=== PATIENT | male | born 1955 | race Caucasian/White ===

== ENCOUNTER 2016-10-10 13:02 | Inpatient (IN) | payer OTHER ==
[2016-10-10] MEDS ORDERED: HYDROmorphone* 1 MG/ML 1 ML SYR IV ONE (14:17)
[2016-10-10] MEDS ORDERED: Ondansetron INJ* 2 MG/ML VIAL IV ONE (14:17)
[2016-10-10] MEDS ORDERED: NS 0.9% 1000 ML* 1,000 ML IV ONE (14:17)
[2016-10-10 14:55] LABS: Hematocrit 35 % (42-52); Hemoglobin 11.9 g/dl (14.0-18.0); Mean Corpuscular HGB Conc 34 g/dl (31-36); Mean Corpuscular Hemoglobin 31 pg (27-31); Mean Corpuscular Volume 91 fL (80-94); Mean Platelet Volume 7 um3 (7.4-10.4); Red Blood Count 3.89 10^6/ul (4.0-5.4); Red Cell Distribution Width 14 % (10.5-15); White Blood Count 17.8 10^3/ul (3.5-10.8)
[2016-10-10 15:11] LABS: Albumin 3.6 g/dL (3.2-5.2); C Reactive Protein 105.57 mg/L (< 5.00); Calcium 9.2 mg/dL (8.6-10.3); EGFR African American 264.1 (>60); EGFR Non-African American 205.4 (>60); Globulin 3.4 g/dL (2-4); Total Bilirubin 0.5 mg/dL (0.2-1.0)
[2016-10-10 15:20] LABS: Potassium 4.3 mmol/L (3.5-5.0)
[2016-10-10] MEDS ORDERED: Iohexol 300* (CONTRAST) 10 ML SDV IV ONE (15:38)
--- NOTE | 2016-10-10 16:58 | RAD ---
CLINICAL HISTORY: Painful left testicle and rectum in a patient with rectal cancer. COMPARISON: Most recent comparison CT of the abdomen and pelvis is dated June 16, 2016 TECHNIQUE: Contrast enhanced CT examination of the abdomen and pelvis from the lung bases through the initial tuberosities. The patient received 76 mL Omnipaque 300 intravenously prior to imaging.The patient received oral contrast as well prior to imaging. FINDINGS: Unless otherwise specified comparisons reference below are made to the June 16, 2016 CT. VISUALIZED LUNG BASES: Again seen are multiple metastases at the lung bases. In the dependent portion of the left upper lobe there is a 1.5 cm nodule, previously 1.3 cm. In the medial aspect of the right lower lobe there is a 1.6 cm nodule, previously 1.3 cm in the lateral aspect of the right lower lobe (image 4) there is a pleural-based nodule measuring 1.8 cm, previously 1.6 cm. ABDOMEN AND PELVIS: Multiple low-density lesions are seen throughout the liver. In the left lobe of the liver there is a subcapsular lesion measuring 2.9 cm in greatest axial dimension and corresponds to a 1.4 cm lesion seen on the previous CT examination in the right lobe of the liver there are 2 lesions adjacent to each other measuring 1.5 and 1.3 cm, previously 5 and 6 mm respectively. There is a new 1.8 cm lesion seen in the right lobe of the liver adjacent to the gallbladder. The spleen, pancreas and adrenal glands are grossly normal in appearance. The gallbladder is normal. The kidneys are normal in appearance without focal mass, calcification or signs of hydronephrosis. The oral contrast has progressed as far as the distal small bowel which limits evaluation of the colon. The small and large bowel are not distended. The patient's normal appendix is identified in the right lower quadrant with air scattered in the lumen (image 40 on the coronal images). Similar to the previous CT examination there is eccentric mural thickening of the rectum.. There is no gross retroperitoneal or mesenteric lymphadenopathy. In the left hemiscrotum there is a 1.8 cm peripherally enhancing fluid density lesion which could represent an abscess. Additional heterogeneous and heterogeneously enhancing material is seen in the left hemiscrotum extending towards the inguinal canal. The abdominal aorta and iliac arteries are normal in course and diameter. Multilevel degenerative changes of the lower thoracic and lumbar spine include loss of intervertebral disc height, marginal osteophyte formation and multilevel vacuum disc phenomenon. At the midline left of midline presacral space there is a soft tissue mass measuring 3.8 x 9.9 cm in the axial plane causing bony destruction of the adjacent sacrum. This was not seen on the previous CT examination. IMPRESSION: 1. There has been interval progression of metastatic burden to the lung bases and liver with enlargement of previously identified lesions as well as new lesions in the liver. 2. Since the previous CT examination there is a new soft tissue mass at the left of midline presacral area measuring 3.8 x 9.9 cm causing destruction of the S3, S4 and S5 level sacrum. 3. CT findings are most consistent with left scrotal abscess. Further characterization can be made with ultrasound if clinically warranted. 4. Additional chronic and degenerative changes as described in body the report unlikely to be directly related to the patient's current acute presentation.
[2016-10-10] MEDS ORDERED: Piperac/Tazob 3.375 gm in NS* 3.375 GM/100 ML BAG IVPB ONE ×2 (17:26→19:00)
[2016-10-10] MEDS ORDERED: PROCHLORPERAZINE INJ 5 MG/ML 2 ML VIAL IV PRN (18:11)
[2016-10-10] MEDS ORDERED: HYDROmorphone* 1 MG/ML 1 ML SYR IV SLOW PU PRN (18:11)
[2016-10-10] MEDS ORDERED: Acetaminophen TAB* 325 MG PO PRN (18:11)
[2016-10-10] MEDS ORDERED: Ondansetron INJ* 2 MG/ML VIAL IV PRN (18:11)
[2016-10-10] MEDS ORDERED: Senna TAB PO PRN (18:13)
[2016-10-10] MEDS ORDERED: LORazepam TAB(*) 0.5 MG PO PRN (18:13)
[2016-10-10] MEDS ORDERED: HYDROmorphone* 1 MG/ML 1 ML SYR IV SLOW PU ONE (18:42)
[2016-10-10] MEDS ORDERED: fentaNYL PATCHs 100 MCG/HR TRANSDERM SCH (19:00)
[2016-10-10] MEDS ORDERED: fentaNYL PATCH 25 MCG/HR TRANSDERM SCH (19:00)
[2016-10-10] MEDS: Methadone TAB* 10 MG PO SCH (20:34)
[2016-10-10] MEDS: Heparin VIAL(*) 5000 UNITS/ML VIAL (FIVE THOUSAND) SUBCUT SCH (20:50)
[2016-10-10] MEDS: NS 0.9% 1000 ML* 1,000 ML IV SCH (20:50)
--- NOTE | 2016-10-10 21:47 | HP ---
HISTORY AND PHYSICAL: DATE OF ADMISSION: 10/10/16 PRIMARY CARE PROVIDER: Matt Gaytan MD ATTENDING PHYSICIAN WHILE IN THE HOSPITAL: Asaf Luu MD *(report dictated by Judd Iniguez NP). CHIEF COMPLAINT: Scrotal pain. HISTORY OF PRESENT ILLNESS: Mr. Whitehead is a 61-year-old male patient who carries a history of stage IV rectal cancer who comes in today stating over the last couple of 2 to 3 days, he has had worsening left scrotal swelling and pain. He decided to the come in to the ER today. He denied having any fevers or chills. He was noted to have on CT imaging a scrotal abscess. He says that he thought initially it was his hernia as he does have an inguinal hernia, but the swelling and pain was just getting much worse and was inconsistent with where his pain typically was for his inguinal hernia. He said the hernia was normally painful on the right and today, the pain was much more pronounced on the left. He denied any fevers or chills. Denies having any nausea or vomiting. He says he has been having bowel movements regularly and he came in and was ultimately found to have a white count of 20,000 and also was found to have a fluid collection in that left scrotum, so the hospitalist service was asked to evaluate for admission. PAST MEDICAL HISTORY: Significant for stage IV rectal cancer. PAST SURGICAL HISTORY: Denied. HOME MEDICATIONS: According to the list that he provided include: 1. Fentanyl 125 mcg every 72 hours. 2. Senna 2 tablets p.o. t.i.d. as needed. 3. Oxycodone 90 mg 8 times a day as needed. 4. Methadone 40 mg p.o. every 8 hours. 5. Ativan 0.5 mg every 6 hours as needed. 6. Ventolin 1 puff inhaled every 6 hours. ALLERGIES TO MEDICATIONS: Include OXALIPLATIN. SOCIAL HISTORY: He is a current smoker. He has been smoking cigarettes for the last 3 years and prior to that, he did smoke cigars on a daily basis. He does drink 1 to 2 glasses of wine daily. Surrogate decision maker is his . FAMILY HISTORY: Reviewed and noncontributory. REVIEW OF SYSTEMS: There is no documented fever. He denied any significant weight change. He denied having any double vision. There is no ear discharge. He denies having any rhinorrhea. No sore throat. No thyroid enlargement. Denies having any chest pain. No orthopnea. There is no nocturnal dyspnea. He denies having abdominal pain with the exception of scrotal pain. He denies any nausea or vomiting. No dysuria. No frequency. No loss of consciousness, no pruritus and no skin ulceration. PHYSICAL EXAMINATION GENERAL: At this time, Mr. Whitehead is a 61-year-old male patient who is chronically ill appearing. He does appear to be cachectic. He is sitting in the ER stretcher, does not appear to be in any acute distress. VITAL SIGNS: Blood pressure 106/50, pulse 84, respirations 18, O2 sat of 100%, temperature 98.3. HEENT: Head is atraumatic and normocephalic. Eyes: EOMs are intact. Sclerae are anicteric, not pale. Throat: Oral mucosa appears to be moist. No oropharyngeal erythema. NECK: Supple. LUNGS: Clear to auscultation. No wheezes, rales, or rhonchi. HEART: Sounds S1, S2. Regular rate and rhythm. No murmurs, rubs, or gallops. ABDOMEN: Soft, flat, and nontender. Bowel sounds present. EXTREMITIES: Pulses were 2+ throughout. He is able to move all 4 extremities with 5/5 strength. NEUROLOGIC: He is awake, alert, oriented x3. No gross focal deficits. SKIN: Intact. SCROTAL: He did have swelling and pain on palpation to the left scrotum. There is otherwise no erythema noted. LABORATORY DATA/DIAGNOSTIC STUDIES: His labs today revealed WBC of 17.8, RBC of 3.89, hemoglobin 11.9, hematocrit 35, platelet count of 335. His sodium was 131, potassium 4.3, chloride of 95, bicarb 25, BUN 8, creatinine 0.42, glucose 99. Lactic 3.5. Calcium 9.2. Total bili 0.5, AST 10, ALT 8, alk phos 100, albumin 3.6. His CT abdomen and pelvis, impression: There has been interval progression of metastatic burden to the lung bases and liver with enlargement of the previous identified lesions as well as new lesions in the liver. Since the previous CT examination, there is new soft tissue mass of the left midline parasacral area measuring 3.8 x 9.8 cm causing destruction of the S3, 4, and 5 level of the sacrum. CT findings most consistent with left scrotal abscess. Further characterization can be made with ultrasound if clinically warranted. Additional chronic and degenerative changes described in the body of the report unlikely to be directly related to the patient's presentation. Old medical records reviewed. ASSESSMENT AND PLAN: Mr. Whitehead is a 61-year-old male patient with a history of stage IV rectal cancer with mets to the spine, liver, and lungs. On evaluation , it was found that he had proximal scrotal abscess. The hospitalist service was asked to evaluate. He will be admitted under inpatient status for: 1. Scrotal abscess. At this point, I did touch base with Dr. Gaytan, who will be evaluating the patient in the morning. We will go ahead and put him on Zosyn IV every 8 hours. The patient will need to be seen by Urology. The patient would not want any invasive procedures done. He seems to be wanting more of a palliative approach and again I will have Dr. Gaytan evaluate the patient tomorrow to see if we can set up possible aspiration or should we just treat this with IV antibiotics only. We will get blood cultures. We will repeat his lactic and we will go ahead and we will hydrate him. 2. Stage IV rectal cancer. Defer to Dr. Gaytan. 3. Fluids, electrolytes, and nutrition, regular diet. 4. Pain. Again, we will go ahead and continue his pain regimen and Dilaudid a milligram every 3 hours. 5. DVT prophylaxis, high risk, placed on heparin subcu. 6. Code status. I do not see they have the [facility] on file. We will need to discuss this with him. TIME SPENT: Time spent on the admission 60 minutes, greater than half the time spent [id number] with the patient obtaining my history and physical, assessment and plan over the plan of care with the patient and implementing plan of care. I did discuss the plan of care with my attending, Dr. Luu. He is in agreement. JUDD INIGUEZ NP CC: Dr. Gaytan * [id number]/[facility] #: [id number] [facility]ATRIC CENTERLilibeth
[2016-10-10] MEDS ORDERED: HYDROmorphone PCA* 20 MG/20 ML PCA.SYRING PCA SCH (22:00)
[2016-10-11] MEDS: Piperac/Tazob 3.375 gm in NS* 3.375 GM/100 ML BAG IVPB SCH ×2 (01:11→08:05)
[2016-10-11 03:35] LABS: Hematocrit 34 % (42-52); Hemoglobin 11.2 g/dl (14.0-18.0); Mean Corpuscular HGB Conc 33 g/dl (31-36); Mean Corpuscular Hemoglobin 30 pg (27-31); Mean Corpuscular Volume 92 fL (80-94); Mean Platelet Volume 6 um3 (7.4-10.4); Red Blood Count 3.68 10^6/ul (4.0-5.4); Red Cell Distribution Width 14 % (10.5-15); White Blood Count 14.2 10^3/ul (3.5-10.8)
[2016-10-11 03:52] LABS: BUN/Creatinine Ratio 20.9 (8-20); Calcium 8.6 mg/dL (8.6-10.3); EGFR Non-African American 199.9 (>60); Potassium 4.3 mmol/L (3.5-5.0)
[2016-10-11] MEDS: Heparin VIAL(*) 5000 UNITS/ML VIAL (FIVE THOUSAND) SUBCUT SCH (06:23)
[2016-10-11] MEDS: Methadone TAB* 10 MG PO SCH (07:08)
[2016-10-11] MEDS: NS 0.9% 1000 ML* 1,000 ML IV SCH (08:05)
--- NOTE | 2016-10-11 11:47 | RAD ---
Indication: 61-year-old male with metastatic colon cancer and clinical presentation of LEFT testicular pain with suggestion of abscess on October 10, 2016 CT. Comparison: October 10, 2016 CT. Technique: Scrotal ultrasound. Report: 4.0 x 2.1 x 2.7 cm normal echotexture RIGHT testicle with normal range vascularity is remarkable for a low suspicion subcapsular 4 mm cyst and a few microcalcifications. Unremarkable 1.0 x 1.7 cm RIGHT epididymis head. Negative for RIGHT hydrocele or varicocele. 5.0 x 3.1 x 3.2 cm LEFT testicle is markedly hyperemic. Central to inferior heterogeneously hypoechoic but not anechoic 1.3 x 2.3 x 1.5 cm region devoid of intrinsic vascularity is heterogeneously hypoechoic. No associated fluid fluid level or echogenic foci with dirty shadowing to indicate intratesticular gas. 1.8 x 2.2 cm LEFT epididymis head with 1.0 x 0.5 x 0.7 cm grossly simple appearing epididymal head cyst or spermatocele is hyperemic. Negative for LEFT hydrocele or varicocele. Severe LEFT scrotal wall edema. No scrotal wall abscess evident. IMPRESSION: The constellation of findings is most consistent with severe LEFT epididymoorchitis. Avascular heterogeneously hypoechoic 1.3 x 2.3 x 1.5 cm lesion in the inferior aspect of the LEFT testicle may represent phlegmon or potentially a neoplastic lesion. No loculated fluid containing abscess collection evident. Reassessment after a course of antibiotics suggested. Results discussed with Dr. Gaytan following the examination.
[2016-10-11 12:36] VITALS: BP 127/75
--- NOTE | 2016-10-12 07:52 | ED ---
Liza Darnell Erika, scribed for Marco Antonio Ward MD on 10/10/16 at 1411 . GI/ HPI - HPI Summary HPI Summary: Patient is a 61-year-old male presenting to the ED with a CC of constant rectal swelling and pain for the past 3-4 days. Pain is aggravated by movement. Patient reports a Hx rectal cancer diagnosed 2 years ago, for which he is followed by Dr. Gaytan. He denies any recent procedures. Patient states he called Dr. Gaytan, who recommended he come to the ED. Hx hernia for years. Patient reports his last appointment with Dr. Gaytan was in July 2016, and patient is on hospice. - History of Current Complaint Chief Complaint: EDGeneral Time Seen by Provider: 10/10/16 13:42 Stated Complaint: SWOLLEN TESTICLE Hx Obtained From: Patient, Family/Nightman - Onset/Duration: Started Days Ago, Atraumatic, Still Present Timing: Constant Severity: Moderate Pain Intensity: 6 Location of Pain: Rectal Associated Signs and Symptoms: Positive: Rectal Pain - and swelling Aggravating Factor(s): Movement Alleviating Factor(s): Nothing - Allergy/Home Medications Allergies/Adverse Reactions: Allergies Allergy/AdvReac Type Severity Reaction Status Date / Time No Known Allergies Allergy Verified 10/10/16 13:31 PMH/Surg Hx/FS Hx/Imm Hx Endocrine/Hematology History: Denies: Hx Diabetes, Hx Systemic Lupus Erythematosus Cardiovascular History: Denies: Hx Congestive Heart Failure, Hx Hypertension, Hx Pacemaker/ICD Respiratory History: Denies: Hx Asthma GI History: Reports: Other GI Disorders - colon cancer History: Denies: Hx Dialysis, Hx Renal Disease Musculoskeletal History: Denies: Hx Rheumatoid Arthritis Sensory History: Reports: Hx Contacts or Glasses - GLASSES Denies: Hx Hearing Aid Opthamlomology History: Reports: Hx Contacts or Glasses - GLASSES Neurological History: Reports: Other Neuro Impairments/Disorders - PAIN CLINIC INJECTION Psychiatric History: Denies: Hx Panic Disorder - Cancer History Cancer Type, Location and Year: RECTAL Hx Chemotherapy: Yes - on oral meds daily per patient Infectious Disease History: No Infectious Disease History: Denies: Traveled Outside the [place] in Last 30 Days - Family History Family History: Denies FHx anesthesia reaction - Social History Alcohol Use: Weekly Alcohol Amount: wine with dinner Substance Use Type: Reports: None Smoking Status (MU): Light Every Day Tobacco Smoker Type: Cigars Amount Used/How Often: 1-2 CIGS/DAY OCC CIGAR Have You Smoked in the Last Year: Yes Review of Systems Negative: Fever Genitourinary: Other - rectal pain and swelling All Other Systems Reviewed And Are Negative: Yes Physical Exam Triage Information Reviewed: Yes Vital Signs On Initial Exam: Initial Vitals Temp Pulse Resp BP Pulse Ox 98.3 F 94 16 113/75 99 10/10/16 13:31 10/10/16 13:31 10/10/16 13:31 10/10/16 13:31 10/10/16 13:31 Vital Signs Reviewed: Yes Appearance: Positive: Well-Appearing, No Pain Distress, Well-Nourished Skin: Positive: Warm, Skin Color Reflects Adequate Perfusion, Dry Head/Face: Positive: Normal Head/Face Inspection Eyes: Positive: Normal ENT: Positive: Normal ENT inspection Neck: Positive: Supple, Nontender Respiratory/Lung Sounds: Positive: Clear to Auscultation, Breath Sounds Present Cardiovascular: Positive: RRR Abdomen Description: Positive: Nontender, Soft Bowel Sounds: Positive: Present Male Genital Exam: Positive: other - Tender external hemorrhoid on the left Musculoskeletal: Positive: Normal Neurological: Positive: Normal Psychiatric: Positive: Affect/Mood Appropriate Diagnostics - Vital Signs Vital Signs Temp Pulse Resp BP Pulse Ox 10/10/16 13:31 98.3 F 94 16 113/75 99 - Laboratory Lab Results: Lab Results 10/10/16 10/10/16 10/10/16 Range/Units 14:45 14:45 14:45 WBC 17.8 H (3.5-10.8) 10^3/ul RBC 3.89 L (4.0-5.4) 10^6/ul Hgb 11.9 L (14.0-18.0) g/dl Hct 35 L (42-52) % MCV 91 (80-94) fL MCH 31 (27-31) pg MCHC 34 (31-36) g/dl RDW 14 (10.5-15) % Plt Count 335 (150-450) 10^3/ul MPV 7 L (7.4-10.4) um3 Neut % (Auto) 85.0 H (38-83) % Lymph % (Auto) 7.2 L (25-47) % [place] % (Auto) 6.8 (1-9) % Eos % (Auto) 0.2 (0-6) % Baso % (Auto) 0.8 (0-2) % Absolute Neuts (auto) 15.1 H (1.5-7.7) 10^3/ul Absolute Lymphs (auto) 1.3 (1.0-4.8) 10^3/ul Absolute Monos (auto) 1.2 H (0-0.8) 10^3/ul Absolute Eos (auto) 0 (0-0.6) 10^3/ul Absolute Basos (auto) 0.1 (0-0.2) 10^3/ul Absolute Nucleated RBC 0.01 10^3/ul Nucleated RBC % 0 INR (Anticoag Therapy) (0.89-1.11) Sodium 131 L (133-145) mmol/L Potassium 4.3 (3.5-5.0) mmol/L Chloride 95 L (101-111) mmol/L Carbon Dioxide 25 (22-32) mmol/L Anion Gap 11 (2-11) mmol/L BUN 8 (6-24) mg/dL Creatinine 0.42 L (0.67-1.17) mg/dL Est GFR ( Amer) 264.1 (>60) Est GFR (Non-Af Amer) 205.4 (>60) BUN/Creatinine Ratio 19.0 (8-20) Glucose 99 (70-100) mg/dL Lactic Acid 2.5 H* (0.5-2.0) mmol/L Calcium 9.2 (8.6-10.3) mg/dL Total Bilirubin 0.50 (0.2-1.0) mg/dL AST 10 L (13-39) U/L ALT 8 (7-52) U/L Alkaline Phosphatase 100 (34-104) U/L C-Reactive Protein 105.57 H (< 5.00) mg/L Total Protein 7.0 (6.4-8.9) g/dL Albumin 3.6 (3.2-5.2) g/dL Globulin 3.4 (2-4) g/dL Albumin/Globulin Ratio 1.1 (1-3) 10/10/16 10/10/16 10/11/16 Range/Units 14:45 22:06 03:20 WBC 14.2 H (3.5-10.8) 10^3/ul RBC 3.68 L (4.0-5.4) 10^6/ul Hgb 11.2 L (14.0-18.0) g/dl Hct 34 L (42-52) % MCV 92 (80-94) fL MCH 30 (27-31) pg MCHC 33 (31-36) g/dl RDW 14 (10.5-15) % Plt Count 253 (150-450) 10^3/ul MPV 6 L (7.4-10.4) um3 Neut % (Auto) 78.8 (38-83) % Lymph % (Auto) 10.5 L (25-47) % [place] % (Auto) 8.0 (1-9) % Eos % (Auto) 1.7 (0-6) % Baso % (Auto) 1.0 (0-2) % Absolute Neuts (auto) 11.2 H (1.5-7.7) 10^3/ul Absolute Lymphs (auto) 1.5 (1.0-4.8) 10^3/ul Absolute Monos (auto) 1.1 H (0-0.8) 10^3/ul Absolute Eos (auto) 0.2 (0-0.6) 10^3/ul Absolute Basos (auto) 0.1 (0-0.2) 10^3/ul Absolute Nucleated RBC 0 10^3/ul Nucleated RBC % 0 INR (Anticoag Therapy) 0.94 (0.89-1.11) Sodium (133-145) mmol/L Potassium (3.5-5.0) mmol/L Chloride (101-111) mmol/L Carbon Dioxide (22-32) mmol/L Anion Gap (2-11) mmol/L BUN (6-24) mg/dL Creatinine (0.67-1.17) mg/dL Est GFR ( Amer) (>60) Est GFR (Non-Af Amer) (>60) BUN/Creatinine Ratio (8-20) Glucose (70-100) mg/dL Lactic Acid 1.7 (0.5-2.0) mmol/L Calcium (8.6-10.3) mg/dL Total Bilirubin (0.2-1.0) mg/dL AST (13-39) U/L ALT (7-52) U/L Alkaline Phosphatase (34-104) U/L C-Reactive Protein (< 5.00) mg/L Total Protein (6.4-8.9) g/dL Albumin (3.2-5.2) g/dL Globulin (2-4) g/dL Albumin/Globulin Ratio (1-3) // Range/Units 03:20 WBC (3.5-10.8) 10^3/ul RBC (4.0-5.4) 10^6/ul Hgb (14.0-18.0) g/dl Hct (42-52) % MCV (80-94) fL MCH (27-31) pg MCHC (31-36) g/dl RDW (10.5-15) % Plt Count (150-450) 10^3/ul MPV (7.4-10.4) um3 Neut % (Auto) (38-83) % Lymph % (Auto) (25-47) % [place] % (Auto) (1-9) % Eos % (Auto) (0-6) % Baso % (Auto) (0-2) % Absolute Neuts (auto) (1.5-7.7) 10^3/ul Absolute Lymphs (auto) (1.0-4.8) 10^3/ul Absolute Monos (auto) (0-0.8) 10^3/ul Absolute Eos (auto) (0-0.6) 10^3/ul Absolute Basos (auto) (0-0.2) 10^3/ul Absolute Nucleated RBC 10^3/ul Nucleated RBC % INR (Anticoag Therapy) (0.89-1.11) Sodium 130 L (133-145) mmol/L Potassium 4.3 (3.5-5.0) mmol/L Chloride 98 L (101-111) mmol/L Carbon Dioxide 27 (22-32) mmol/L Anion Gap 5 (2-11) mmol/L BUN 9 (6-24) mg/dL Creatinine 0.43 L (0.67-1.17) mg/dL Est GFR ( Amer) 257.0 (>60) Est GFR (Non-Af Amer) 199.9 (>60) BUN/Creatinine Ratio 20.9 H (8-20) Glucose 95 (70-100) mg/dL Lactic Acid (0.5-2.0) mmol/L Calcium 8.6 (8.6-10.3) mg/dL Total Bilirubin (0.2-1.0) mg/dL AST (13-39) U/L ALT (7-52) U/L Alkaline Phosphatase (34-104) U/L C-Reactive Protein (< 5.00) mg/L Total Protein (6.4-8.9) g/dL Albumin (3.2-5.2) g/dL Globulin (2-4) g/dL Albumin/Globulin Ratio (1-3) Result Diagrams: 10/11/16 03:20 10/11/16 03:20 Lab Statement: Any lab studies that have been ordered have been reviewed, and results considered in the medical decision making process. - CT CT A/P W/ CT Interpretation Completed By: Radiologist - IMPRESSION: 1. There has been interval progression of metastatic burden to the lung bases and liver with enlargement of previously identified lesions as well as new lesions in the liver. 2. Since the previous CT examination there is a new soft tissue mass at the left of midline presacral area measuring 3.8 x 9.9 cm causing destruction of the S3, S4 and S5 level sacrum. 3. CT findings are most consistent with left scrotal abscess. Further characterization can be made with ultrasound if clinically warranted. 4. Additional chronic and degenerative changes as described in body the report unlikely to be directly related to the patient's current acute presentation. Re-Evaluation - Re-Evaluation First Eval Re-Evaluation Time: 14:12 Comment: Patient now reports testicular pain. Exam reveals a large left inguinal hernia which Dr. Ward reduced. There was then bright red rectal bleeding that did not appear to be coming from the hemorrhoid. Second Eval Re-Evaluation Time: 17:29 Comment: Discussed CT A/P and lab results with patient. Discussed Dr. Gaytan's recommendation and need for admission GIGU Course/Dx - Diagnoses Provider Diagnoses: Scrotal abscess, Inguinal hernia, External hemorrhoid - Physician Notifications Discussed Care Of Patient With: Dr. Gaytan (oncology) at 17:23 - discussed results of CT A/P. Recommends admission. Dr. Martínez (hospitalist) at 17:27 - agrees to admit Discharge - Discharge Plan Condition: Stable Disposition: ADMITTED TO [facility] The documentation as recorded by the Liza chavis Erika accurately reflects the service I personally performed and the decisions made by me, Marco Antonio Ward MD.
== END 2016-10-11 14:03 | disposition short-term general hospital (02) | DRG 501 ==
LOC: ED 13:02 → MED 17:32 → OBSVTOIN 10-11 12:00
PROVIDERS: ADMIT Internal Medicine; ATTEND Internal Medicine
DX: N49.2 Inflammatory disorders of scrotum (principal); C78.00 Secondary malignant neoplasm of unspecified lung; C78.7 Secondary malignant neoplasm of liver and intrahepatic bile duct; C20 Malignant neoplasm of rectum; C79.51 Secondary malignant neoplasm of bone; F17.210 Nicotine dependence, cigarettes, uncomplicated; Z79.891 Long term (current) use of opiate analgesic; Z79.899 Other long term (current) drug therapy; Z88.8 Allergy status to other drugs, medicaments and biological substances
CPT/HCPCS: 36415; 74177; 76870; 80048; 80053; 83605; 85025; 85610; 86140; 87040; 99233; A9270-GY; J1170; J1644; J2270; J2405; J2543; Q9967

== ENCOUNTER 2016-10-11 14:02 | Inpatient (IN) | payer OTHER ==
[2016-10-11] MEDS ORDERED: LORazepam TAB(*) 0.5 MG PO PRN (15:02)
[2016-10-11] MEDS ORDERED: Albuterol HFA INHALER* 8 gm MDI INH PRN (15:02)
[2016-10-11] MEDS ORDERED: Senna TAB PO PRN (15:02)
[2016-10-11] MEDS ORDERED: oxyCODONE TAB* 5 MG TAB PO PRN (15:06)
[2016-10-11] MEDS ORDERED: fentaNYL PATCH 25 MCG/HR TRANSDERM SCH (16:00)
[2016-10-11] MEDS ORDERED: Piperac/Tazob 3.375 gm in NS* 3.375 GM/100 ML BAG IVPB ONE (16:00)
[2016-10-11] MEDS ORDERED: fentaNYL PATCHs 100 MCG/HR TRANSDERM SCH (16:00)
[2016-10-11] MEDS: Piperac/Tazob 3.375 gm in NS* 3.375 GM/100 ML BAG IVPB SCH (16:43)
[2016-10-11] MEDS ORDERED: HYDROmorphone PCA* 20 MG/20 ML PCA.SYRING PCA SCH (17:00)
--- NOTE | 2016-10-11 21:06 | CONS ---
CONSULTATION REPORT: DATE OF CONSULT: 10/11/16 REQUESTING PHYSICIAN: Dr. Gaytan. CONSULTING SERVICE: Infectious Disease. REASON FOR CONSULT: Testicular pain. IMPRESSION: 1. Severe left testicular pain and swelling. CT of the abdomen and pelvis showed a left scrotal abscess. An ultrasound done today showed epididymal orchitis with no abscess, possible phlegmon. Overall more consistent with epididymal orchitis though these can progress to abscess. 2. Stage IV rectal cancer. RECOMMENDATION: Agree with Zosyn. His leukocytosis improved since starting that and he thinks the pain is easing overall a little bit. 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 HISTORY OF PRESENT ILLNESS: This 61-year-old man with stage IV rectal cancer and inguinal hernia, admitted with left testicular pain and swelling. It started 5 days ago. He had dull ache in the posterior testicle on the left, then for about 3 days had left scrotal swelling and pain without fevers, chills , or sweats. His appetite was decreased. He came to the hospital yesterday. His white count was 17,000, was started on Zosyn. CT scan was done that suggest abscess. Ultrasound today showed epididymal orchitis. His white blood cell is down 14,000. His creatinine is stable. His pain is a little bit less intense. He has had pain medication which he thinks has helped some. He is still, however, very cautious about movement. PAST MEDICAL HISTORY: Stage IV rectal cancer. MEDICATIONS: 1. Tylenol. 2. 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 3. Heparin subcutaneous injection. 4. Methadone. 5. Zosyn 3.375 g every 8 hours by extended infusion. 6. Senna. 7. Fentanyl patch. ALLERGIES: OXALIPLATIN. FAMILY HISTORY: No recurrent infections. SOCIAL HISTORY: He is a smoker, drinks alcohol, lives with his . REVIEW OF SYSTEMS: All negative on 12-point review of systems except as noted above. PHYSICAL EXAM: Vital Signs: Temperature is 36.2, heart rate 70, respiratory rate 14, blood pressure 120/70, O2 sat 100% on room air. In general, he is awake and appears uncomfortable. Neurologic: Oriented x3. Follows all commands. HEENT: There is no conjunctival hemorrhage. Oropharynx without lesions. Neck: Supple. Lymph Nodes: There is no cervical, supraclavicular, inguinal, axillary, or epitrochlear lymphadenopathy. Heart: Regular rate and rhythm without murmurs, rubs, or gallops. Lungs: Clear to auscultation bilaterally. Abdomen: Soft, nontender, nondistended. There is a right lower quadrant mass which is tender. There are bowel sounds present. Skin: There is no rash or splinter hemorrhages. Musculoskeletal: There is no spine tenderness to palpation. Genitourinary: There is diffuse edema of the left hemiscrotum with induration. There is no fluctuance or tenderness to palpation. LABORATORY DATA: Creatinine 0.4. White blood cell count 14, hemoglobin 11, platelets 253. Please see impressions and recommendations as outlined above. Thanks for asking me to see Mr. Whitehead in consultation. [id number]/[facility] #: [id number] ENOCH
[2016-10-11] MEDS: Heparin VIAL(*) 5000 UNITS/ML VIAL (FIVE THOUSAND) SUBCUT SCH (22:50)
[2016-10-11] MEDS: Methadone TAB* 10 MG PO SCH (22:51)
--- NOTE | 2016-10-12 00:49 | HP ---
HISTORY AND PHYSICAL: DATE OF ADMISSION: 10/11/16 HISTORY OF PRESENT ILLNESS: Briefly, Mr. Whitehead is well known to the service and came to the emergency room last night and was admitted through observation under MARYLOU Gonzalez. The details of his history and physical include that Mr. Whitehead is a 61-year-old male with end-stage rectal cancer who came to the emergency room with scrotal swelling and pain and was found to have an abscess in the left testicular area. At that time, he had denied any fevers or chills. Upon arriving at the emergency room, he was pancultured and did get a CT scan of the pelvis with and without contrast, which did reveal a scrotal abscess. He was placed on Zosyn, IV antibiotic therapy, and continued on his pain medications as per the hospice recommendations. After 24 hours of antibiotic therapy, his white blood cell count did come down and the lactic acid also did decrease. He had remained afebrile; however, had significant fluid collection in the left scrotum area and as per recommended by both Dr. Gaytan and Dr. Becerril, he should have an ultrasound-guided drainage of the abscess or at least an aspiration. I did have a conversation with Dr. Tank Cooper and he agreed to do it under interventional ultrasound guidance. PAST MEDICAL HISTORY: Significant for stage IV rectal cancer. PAST SURGICAL HISTORY: Related to his rectal cancer. HOME MEDICATIONS: Include: 1. Fentanyl 125 mcg every 72 hours. 2. Senokot 2 tabs p.o. t.i.d. 3. Oxycodone 90 mg every 3 hours as needed for breakthrough. 4. Methadone 40 mg p.o. q.8 hours. 5. Ativan 0.5 mg every 6 hours as needed. 6. Ventolin 1 puff inhaled every 6 hours. ALLERGIES: OXALIPLATIN. FAMILY HISTORY: Noncontributory. SOCIAL HISTORY: He is a current smoker. Drinks 1 to 2 glasses of wine on a daily basis. His surrogate partner is his . REVIEW OF SYSTEMS: As indicated on Judd Iniguez's H and P note. PHYSICAL EXAMINATION GENERAL: Mr. Whitehead is a 61-year-old white male who appears chronically ill. He has significant drainage from his rectal area and is cachectic. VITAL SIGNS: The patient is afebrile and vital signs are stable. HEENT: He is normocephalic, atraumatic. The pupils are equal, round, and reactive to light and accommodation; however, somewhat pinpoint. NECK: Supple. LUNGS: Clear to auscultation without wheezes, rales, or rhonchi. HEART: Regular rate and rhythm without murmurs, rub, click, or gallop. ABDOMEN: Soft, flat, nearly cachectic, nontender. Bowel sounds are present in all 4 quadrants. EXTREMITIES: Pupils are 2+ and equal. NEUROLOGICAL: He is alert and oriented x3. There are no focal neurological deficits. SKIN: Briefly intact. Scrotal area: Significant swelling, tender and warm to touch in the left scrotum. LABORATORY AND DIAGNOSTICS: As mentioned in the HPI. ASSESSMENT AND PLAN: Mr. Whitehead is a 61-year-old white male with a history of stage IV rectal cancer now with a scrotal abscess. We will admit for IV antibiotic therapy and reduction of his scrotal abscess under ultrasound guidance and continue the Zosyn per protocol every 8 hours. The patient will continue his pain medication as previously prescribed. 1. Fluids, electrolytes, and nutrition: He will continue his regular diet. Pain, again he will continue his medications. 2. DVT prophylaxis: He will be placed on heparin subcu. 3. Code status is unclear to me at this time; however, will be addressed in the morning. The above was discussed with Dr. Matt Gaytan and he is aware. SUSAN RENE [id number]/[facility] #: [id number] E[place]
[2016-10-12] MEDS: Piperac/Tazob 3.375 gm in NS* 3.375 GM/100 ML BAG IVPB SCH ×2 (00:56→07:58)
[2016-10-12] MEDS: Heparin VIAL(*) 5000 UNITS/ML VIAL (FIVE THOUSAND) SUBCUT SCH ×2 (05:32→15:27)
[2016-10-12 05:52] LABS: Hematocrit 30 % (42-52); Hemoglobin 10.1 g/dl (14.0-18.0); Mean Corpuscular HGB Conc 33 g/dl (31-36); Mean Corpuscular Hemoglobin 31 pg (27-31); Mean Corpuscular Volume 91 fL (80-94); Mean Platelet Volume 7 um3 (7.4-10.4); Red Blood Count 3.32 10^6/ul (4.0-5.4); Red Cell Distribution Width 14 % (10.5-15)
[2016-10-12 06:02] LABS: EGFR Non-African American 253.5 (>60)
[2016-10-12 08:09] VITALS: BP 123/74
[2016-10-12] MEDS: Methadone TAB* 10 MG PO SCH ×2 (09:43→14:26)
[2016-10-13] MEDS ORDERED: fentaNYL PATCHs 100 MCG/HR TRANSDERM SCH (21:00)
[2016-10-13] MEDS ORDERED: fentaNYL PATCH 25 MCG/HR TRANSDERM SCH (21:00)
== END 2016-10-12 15:11 | DRG 501 ==
LOC: MED 14:03
PROVIDERS: ADMIT Internal Medicine Hematology & Oncology; ATTEND Internal Medicine Hematology & Oncology
DX: N45.2 Orchitis (principal); C20 Malignant neoplasm of rectum; F17.210 Nicotine dependence, cigarettes, uncomplicated; K40.90 Unilateral inguinal hernia, without obstruction or gangrene, not specified as recurrent; Z88.8 Allergy status to other drugs, medicaments and biological substances; Z51.5 Encounter for palliative care
CPT/HCPCS: 36415; 82565; 84520; 85025; 85610; 85730; 99232; A9270-GY; J1642; J1644; J2270; J2543

== ENCOUNTER 2016-10-12 15:17 | Inpatient (IN) | payer OTHER ==
[2016-10-12] MEDS ORDERED: Senna TAB PO PRN (15:33)
[2016-10-12] MEDS ORDERED: oxyCODONE TAB* 5 MG TAB PO PRN (15:33)
[2016-10-12] MEDS ORDERED: Albuterol HFA INHALER* 8 gm MDI INH PRN (15:33)
[2016-10-12] MEDS ORDERED: LORazepam TAB(*) 0.5 MG PO PRN (15:33)
[2016-10-12] MEDS ORDERED: HYDROmorphone PCA* 20 MG/20 ML PCA.SYRING PCA SCH (16:00)
[2016-10-12] MEDS: Piperac/Tazob 3.375 gm in NS* 3.375 GM/100 ML BAG IVPB SCH (17:08)
[2016-10-12] MEDS: fentaNYL Patch Check Q Shift 1 NOTE SCH (19:24)
[2016-10-12] MEDS: Methadone TAB* 10 MG PO SCH (20:22)
[2016-10-13] MEDS: Piperac/Tazob 3.375 gm in NS* 3.375 GM/100 ML BAG IVPB SCH ×2 (00:03→09:00)
[2016-10-13 05:51] LABS: Hematocrit 30 % (42-52); Mean Corpuscular HGB Conc 33 g/dl (31-36); Mean Corpuscular Hemoglobin 30 pg (27-31); Mean Corpuscular Volume 91 fL (80-94); Mean Platelet Volume 7 um3 (7.4-10.4); Red Cell Distribution Width 14 % (10.5-15); White Blood Count 9.2 10^3/ul (3.5-10.8)
[2016-10-13 05:55] LABS: Add Diff/Slide Review? Slide Review Added; Comments Flag Yes
[2016-10-13 06:10] LABS: BUN/Creatinine Ratio 14.3 (8-20); Calcium 8.2 mg/dL (8.6-10.3); EGFR Non-African American 253.5 (>60); Potassium 3.7 mmol/L (3.5-5.0)
[2016-10-13] MEDS: fentaNYL Patch Check Q Shift 1 NOTE SCH (06:33)
[2016-10-13] MEDS: Methadone TAB* 10 MG PO SCH (08:57)
[2016-10-13] MEDS ORDERED: Levofloxacin TAB* 500 MG PO ONE (10:54)
[2016-10-13 14:00] VITALS: BP 106/56
--- NOTE | 2016-10-13 14:17 | CONS ---
PALLIATIVE CARE CONSULTATION: DATE OF CONSULT: 10/13/16 PRIMARY CARE PHYSICIAN: Santi Teixeira MD. REQUESTING PHYSICIAN FOR CONSULTATION: Matt Gaytan MD. REASON FOR EVALUATION: Re-enrollment Hospice. HOSPITAL COURSE: This is a 61-year-old male with a past medical history of rectal cancer who has been at home on hospice care, who presented on the with left testicular swelling and pain, diagnosed with epididymitis. 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 His swelling and pain have improved and they have become more manageable. The idea was to get hospice involved during this hospitalization to get him re-enrolled once he is getting discharged, which he is getting discharged today. There is some concern about his pain control once he is home since he is being managed with Dilaudid HOME IMPROVEMENT CONTRACTOR, but he feels his testicle has improved, that he should be able to manage his pain well, otherwise his appetite is minimal. He states he is moving his bowels without any issue. Denies any other symptoms. Remaining review of systems is negative. PAST MEDICAL HISTORY: Rectal cancer diagnosed 3 years ago, status post chemo and radiation, now at home on hospice. Tobacco use, alcohol use, COPD, constipation. INPATIENT MEDICATIONS: Albuterol 1 puff inhaled q.6 hours as needed, Dilaudid HOME IMPROVEMENT CONTRACTOR, Lorazepam 0.5 mg p.o. q.6 hours as needed, methadone 40 mg p.o. b.i.d., senna 2 tablets t.i.d. as needed, Zosyn q.8 hours, Fentanyl 125 mcg, oxycodone 90 mg q.3 hours as needed. ALLERGIES: No known drug allergies. SOCIAL HISTORY: Patient lives at home with his girlfriend, Jenny, who is his healthcare proxy, who helps care for him. He is still occasionally smoking. He stopped smoking for the past several years, since he was diagnosed with rectal cancer; and he drinks several glasses of wine per day. ADVANCE DIRECTIVES: His MOLST form has been completed and it is a DNR/DNI, comfort measures, do not the sent to the hospital, unless pain or severe symptoms cannot be otherwise controlled, no feeding tube, no IV fluids. Determined use or limitation of antibiotics when infection occurs. FAMILY HISTORY: Reviewed and noncontributory. REVIEW OF SYSTEMS: As mentioned in the HPI. PHYSICAL EXAMINATION: Vitals: Temp 98.5, pulse rate 71, respiratory rate 16, oxygen saturation 99% on room air, blood pressure 134/75. General: No acute distress. Thin gentleman. HEENT: Neck is supple. No lymphadenopathy. Pupils are equal and reactive. Anicteric. Oropharynx mucous membranes are moist. No erythema or exudate. Cardiac: Regular rate and rhythm. No murmurs, rubs or gallops. Respiratory: Diminished breath sounds. No wheezes, rhonchi or rales. Abdomen: Soft, nondistended, nontender. Extremities: No clubbing, cyanosis or edema. Neurologic: Oriented x3. No focal neurologic deficits. LABORATORY DATA: White count 9.2, hemoglobin 10, hematocrit 30, platelets 239. Sodium 133, potassium 3.7, chloride 102, bicarb 26, BUN 5, creatinine 0.35. Glucose 103. ASSESSMENT AND PLAN: This is a 61-year-old male with a past medical history of rectal cancer on hospice at home, who presented with worsening testicular swelling and pain, diagnosed with epididymitis, received IV antibiotics, now transitioning to oral antibiotics, being discharged today and getting re- enrolled on hospice at home for his terminal diagnosis of rectal cancer. His symptoms are being managed currently; however, he is on a Dilaudid HOME IMPROVEMENT CONTRACTOR, so I recommend careful watch of his pain control with transitioning from IV to oral once he is being discharged to home. Palliative Care and Social Work is also following along as well. Thank you for this consultation. PATIENT TIME: Greater than 60 minutes were spent doing his consultation, more than half the time was spent in direct patient contact. CC: Santi Teixeira MD.* [id number]/[facility] #: [id number] ENOCH
[2016-10-13] MEDS ORDERED: fentaNYL PATCH 25 MCG/HR TRANSDERM SCH (21:00)
[2016-10-13] MEDS ORDERED: fentaNYL PATCHs 100 MCG/HR TRANSDERM SCH (21:00)
--- NOTE | 2016-10-13 22:28 | DS ---
DISCHARGE SUMMARY: DATE OF ADMISSION: 10/12/16 DATE OF DISCHARGE: 10/13/16 PRINCIPAL DIAGNOSES: 1. Severe epididymitis/orchitis sensitive to Zosyn antibiotic therapy. 2. Metastatic end-stage rectal cancer, on hospice services. OTHER DIAGNOSES: Include 1. An allergy to OXALIPLATIN. 2. Again, past rectal cancer, stage IV. DISCHARGE MEDICATIONS: Will include: 1. Fentanyl 125 mcg every 72 hours. 2. Senokot 2 tabs p.o. 3 times daily. 3. Oxycodone 90 mg every 3 hours as needed for breakthrough pain. 4. Methadone 40 mg every 8 hours. 5. Lorazepam 0.5 mg every 6 hours as needed. 6. Ventolin 1 puff inhaled every 6 hours as needed. 7. Dilaudid 4 mg every 6 hours as needed for acute pain not responsive to his typical oxycodone rescue for breakthrough pain for his acute pain. 8. Levaquin 500 mg p.o. daily x10 additional days. HOSPITAL COURSE: Briefly, the patient was admitted via the emergency room for observation status as the patient had significant scrotal swelling and pain and was found to have left testicular severe epididymitis/orchitis. He was pancultured, which the blood cultures were negative and placed on Zosyn IV antibiotic therapy and a Dilaudid AIR COMMODORE for pain. He has responded nicely during his hospital course and was also followed by Infectious Disease with consult with Dr. Julio Cesar Becerril. He will be stepped down to Levaquin 500 mg p.o. daily x10 additional days and follow up in the office with Dr. Gaytan in approximately 1 week. He will return to hospice services upon his discharge. During his hospital stay, he did remain afebrile and stable and will continue his pain regimen upon his discharge. Time coordinating his discharge plans was approximately 35 minutes. SUSAN RENE [id number]/[facility] #: [id number] ENOCH
--- NOTE | 2016-10-15 11:47 | DS ---
DISCHARGE SUMMARY: ADDENDUM: This is an addendum to history and physical done on 10/11/16. The patient had an OBV admi ssion for groin abscess on 10/11/16 admitted at 4:11. He was overnight on IV antibiotics. Imaging has been reviewed and plan will be IV antibiotics, no drainage as followup ultrasound did not show a clear abscess. He is going to stay in the hospital today with being transferred to the inpatient ospice service. MEDICATIONS: No changes in his inpatient medications and he will continue: 1. Acetaminophen. 2. Albuterol. 3. Long-acting fentanyl 125 q.72 hours as well as oxycodone 90 mg q.3 hours p.r.n. and morphine 40 mg q.8 hours p.r.n. 4. Ativan 0.5 q.6 hours p.r.n. 5. Senokot 2 tabs b.i.d. FOLLOWUP: We will continue to follow the patient in inpatient hospice. [id number]/[facility] #: [id number]
== END 2016-10-13 13:35 | disposition hospice, home (50) | DRG 501 ==
LOC: MED 15:20
PROVIDERS: ADMIT Internal Medicine Hematology & Oncology; ATTEND Internal Medicine Hematology & Oncology
DX: N45.3 Epididymo-orchitis (principal); C20 Malignant neoplasm of rectum; J44.9 Chronic obstructive pulmonary disease, unspecified; K59.00 Constipation, unspecified; F10.10 Alcohol abuse, uncomplicated; F17.210 Nicotine dependence, cigarettes, uncomplicated; Z66 Do not resuscitate; Z79.891 Long term (current) use of opiate analgesic; Z79.899 Other long term (current) drug therapy; Z88.8 Allergy status to other drugs, medicaments and biological substances
CPT/HCPCS: 36415; 80048; 85025; 99238; A9270-GY; J2270; J2543

== ENCOUNTER 2016-10-29 06:47 | Inpatient (IN) | payer OTHER ==
[2016-10-29] MEDS ORDERED: HYDROmorphone* 1 MG/ML 1 ML SYR IV SLOW PU ONE ×3 (07:33→09:34)
--- NOTE | 2016-10-29 07:46 | ED ---
GI/ HPI - HPI Summary HPI Summary: Stage rectal CA hospice pt presents w/ recurrent pain and swelling of Lt testicle which is red with an area of black tissue. No drainage from site. He was seen for this here in late September 2016. CT revealed possible abscess but U/S reported no abscess, possible lesion. CT also reported new lesions in sacral region. 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 Pain and swelling improved but pt reports by no means resolved. He was d/c'd w/ PO levaquin which he completed. Called as pain and swelling started to return. Was switched to a coure of PO bactrim which did nothing so was switched again to augmentin 2 days ago. Unfortunately, pt has been vomiting this back up each time he takes, with or without food. He is taking multiple pain meds already at home w/o relief d/t current testicular condition. Denies fever, chills, nausea, chest pain, difficulty breathing, ab pain. He has been having BM's as usual and urination is status quo (takes a minute to get started, but then flows freely). Denies dysuria and no hematochezia of note. 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 Pain Intensity: 10 - Additional Pertinent History Primary Care Physician: [id number] - Allergy/Home Medications Allergies/Adverse Reactions: Allergies Allergy/AdvReac Type Severity Reaction Status Date / Time No Known Allergies Allergy Verified 10/29/16 06:54 PMH/Surg Hx/FS Hx/Imm Hx Previously Healthy: Yes Endocrine/Hematology History: Denies: Hx Diabetes, Hx Systemic Lupus Erythematosus Cardiovascular History: Denies: Hx Congestive Heart Failure, Hx Hypertension, Hx Pacemaker/ICD Respiratory History: Denies: Hx Asthma GI History: Reports: Other GI Disorders - rectal cancer History: Denies: Hx Dialysis, Hx Renal Disease Musculoskeletal History: Denies: Hx Rheumatoid Arthritis Sensory History: Reports: Hx Cataracts, Hx Contacts or Glasses Denies: Hx Hearing Aid Opthamlomology History: Reports: Hx Cataracts, Hx Contacts or Glasses Neurological History: Reports: Other Neuro Impairments/Disorders - PAIN CLINIC INJECTION Psychiatric History: Denies: Hx Panic Disorder - Cancer History Cancer Type, Location and Year: RECTAL Hx Chemotherapy: Yes - on oral meds daily per patient Infectious Disease History: No Infectious Disease History: Denies: Traveled Outside the [place] in Last 30 Days - Social History Occupation: Retired Lives: With Family Alcohol Use: Daily Alcohol Amount: wine with dinner Hx Substance Use: No Substance Use Type: Reports: None Smoking Status (MU): Current Every Day Smoker Type: Cigarettes Amount Used/How Often: 1-2 CIGS/DAY OCC CIGAR Have You Smoked in the Last Year: Yes Review of Systems Negative: Fever, Chills Negative: Chest Pain Negative: Shortness Of Breath Negative: Abdominal Pain, Vomiting, Diarrhea, Nausea Positive: see HPI Skin: Other - see HPI Neurological: Negative Psychological: Normal All Other Systems Reviewed And Are Negative: Yes Physical Exam Triage Information Reviewed: Yes Vital Signs On Initial Exam: Initial Vitals Temp Pulse Resp BP Pulse Ox 98 F 104 20 104/60 100 10/29/16 06:52 10/29/16 06:52 10/29/16 06:52 10/29/16 06:52 10/29/16 06:52 Vital Signs Reviewed: Yes Appearance: Positive: Pain Distress, Thin Skin: Positive: Warm, Dry - Lt scrotal region is edematous, erythematous with nickel sized area of black tissue along inferior aspect - no blistering, vesicles or pustules - no drainage - tender w/ movement, transition from sitting to standing and vice versa - no streaking from observed; no penile lesions or d/c observed Head/Face: Positive: Normal Head/Face Inspection Eyes: Positive: Normal, EOMI, Conjunctiva Clear ENT: Positive: Hearing grossly normal Neck: Positive: Supple Respiratory/Lung Sounds: Positive: Clear to Auscultation, Breath Sounds Present - port in place Cardiovascular: Positive: Normal, RRR, S1, S2 Abdomen Description: Positive: Nontender, Other: Bowel Sounds: Positive: Present - Lt LQ w/ raised area of well defined tissue - pt reports this is an old hernia - nonpainful and overlying skin is clear Musculoskeletal: Positive: Normal, Strength/ROM Intact Neurological: Positive: Normal, Sensory/Motor Intact, Alert, Oriented to Person Place, Time, CN Intact II-III Psychiatric: Positive: Normal - Cj Coma Scale Coma Scale Total: 15 Diagnostics - Vital Signs Vital Signs Temp Pulse Resp BP Pulse Ox 10/29/16 06:52 98 F 104 20 104/60 100 - Laboratory Result Diagrams: 10/29/16 07:45 10/29/16 07:45 Lab Statement: Any lab studies that have been ordered have been reviewed, and results considered in the medical decision making process. Re-Evaluation - Re-Evaluation First Eval Change: Improved Second Eval Change: Worse - pain worse s/p U/S - will order more dilaudid Third Eval Change: Improved GIGU Course/Dx - Course Course Of Treatment: Pt presents w/ recurrence of Lt testicular swelling which started a few weeks ago. Was admitted and tx' d/w IV anbx then sent home on PO levaquin which reduced swelling and pain. He was comfortable until he completed his PO levaquin and swelling returned. He was initially switched to bactrim PO which was ineffective then most recently augmentin PO over past 2 days. Unfortunately, he has not been keeping this down. Took a short course of PO dilaudid when sx started to return and this helped pain however once he ran out , his pain has been poorly controlled. He had relief here today w/ IV dialudid and repeat testicular U/S shows possible abscess and epididymoorchitis. He was dx'd w/ the latter at last visit as well. He also has presacral neoplasm lesions at S3.4.5, left of midline. It is uncertain if his swelling is infectious or simply mass related w/ exudates however given his previous improvement w/ IV anbx, will be admitted to Dr. Godinez for drainage and further investigation. Spoke w/ RAMIN Freitas, who has arranged admission and surgical comfort care through Dr. Godinez. Pt has been taken off of hospice for the time being - this decision was made later in his care in the ED, hence delayed labs. Earlier in the visit, spoke w/ Dr. Gaytan who requested hospice nurse's report on this situation. A message was left for Shara Shirley RN w/o return call as of yet. Called back to answering service who states she's still in the field today. Will relay updates to her once she calls back as answering service could not take a message. - Diagnoses Provider Diagnoses: Testicular swelling, left, Epididymo-orchitis - Physician Notifications Discussed Care Of Patient With: Dr. Bael. Zena NP (oncology). [facility] w/ Shara Shirley, hospice nurse Discharge - Discharge Plan Condition: Stable Disposition: ADMITTED TO [facility]
--- NOTE | 2016-10-29 09:15 | RAD ---
INDICATION: Left testicular pain left side epididymal orchitis. Abscess COMPARISON: CT October 10, 2016; testicular ultrasound October 11, 2016 TECHNIQUE: Duplex interrogation of the scrotum was performed. FINDINGS: Testicles: The right testis measures 3.9 x 2.3 x 2.1 cm. 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 The echogenicity is normal. There is a 0.4 cm cyst in the superior pole. There is normal flow on Doppler interrogation. The left testis measures 3.7 x 2.3 x 2.3 cm and is slightly echogenic. There is no intratesticular mass. There is marked hyperemia Epididymides: The right epididymis appears normal. The epididymal head measures 1.0 x 1.4 cm. The left epididymis is markedly hyperemic and enlarged. The left epididymal head measures 2.3 x 1.7 cm. There is a left-sided epididymal cyst. Hydroceles: No significant hydroceles. Varicoceles: None. Other: There is a large mass in the left scrotum consistent with phlegmonous change and abscess formation. This is decreasing mass effect upon the left testis. The mass measures approximately 8.6 x 6.3 x 4.6 cm. Similar findings are present previously. IMPRESSION: SUSPECTED LEFT-SIDED EPIDIDYMOORCHITIS WITH LEFT SCROTAL ABSCESS. SIMILAR FINDINGS HAVE BEEN DOCUMENTED PREVIOUSLY
[2016-10-29] MEDS ORDERED: Piperac/Tazob 3.375 gm in NS* 3.375 GM/100 ML BAG IVPB ONE (10:11)
[2016-10-29 10:14] LABS: Hematocrit 33 % (42-52); Hemoglobin 10.7 g/dl (14.0-18.0); Mean Corpuscular HGB Conc 33 g/dl (31-36); Mean Corpuscular Hemoglobin 29 pg (27-31); Mean Corpuscular Volume 89 fL (80-94); Mean Platelet Volume 7 um3 (7.4-10.4); Red Blood Count 3.67 10^6/ul (4.0-5.4); Red Cell Distribution Width 15 % (10.5-15); White Blood Count 24.5 10^3/ul (3.5-10.8)
[2016-10-29 10:17] LABS: Add Diff/Slide Review? Slide Review Added; Comments Flag Yes
[2016-10-29 10:24] LABS: Albumin 3.2 g/dL (3.2-5.2); BUN/Creatinine Ratio 24.4 (8-20); C Reactive Protein 168.5 mg/L (< 5.00); Calcium 8.8 mg/dL (8.6-10.3); EGFR African American 271.6 (>60); EGFR Non-African American 211.2 (>60); Globulin 3.1 g/dL (2-4); Potassium 4.2 mmol/L (3.5-5.0); Total Bilirubin 0.4 mg/dL (0.2-1.0); Total Protein 6.3 g/dL (6.4-8.9)
[2016-10-29] MEDS: HYDROmorphone* 2 MG/ML 1 ML SYR IV SLOW PU SCH ×6 (12:25→23:45)
[2016-10-29] MEDS ORDERED: LORazepam TAB(*) 0.5 MG PO PRN ×2 (13:36→13:58)
[2016-10-29] MEDS ORDERED: OXYCODONE HCL PO PRN (13:36)
[2016-10-29] MEDS ORDERED: Senna TAB PO PRN (13:36)
[2016-10-29] MEDS ORDERED: Albuterol HFA INHALER* 8 gm MDI INH PRN (13:36)
[2016-10-29] MEDS ORDERED: fentaNYL PATCH 25 MCG/HR TRANSDERM SCH (14:00)
[2016-10-29] MEDS ORDERED: fentaNYL PATCHs 100 MCG/HR TRANSDERM SCH (14:00)
[2016-10-29] MEDS: Methadone TAB* 10 MG PO SCH ×2 (14:24→23:32)
[2016-10-29] MEDS: NS 0.9% 1000 ML* 1,000 ML IV SCH ×2 (14:30→22:00)
[2016-10-29] MEDS: Piperac/Tazob 3.375 gm in NS* 3.375 GM/100 ML BAG IVPB SCH (14:46)
[2016-10-29] MEDS ORDERED: oxyCODONE TAB* 5 MG TAB PO PRN (15:00)
[2016-10-29] MEDS ORDERED: Metoclopramide TAB* 10 MG PO ONE (15:00)
[2016-10-29] MEDS ORDERED: Famotidine IV* 10 MG/ML 2 ML (20 mg) ONE ×2 (17:00→19:00)
[2016-10-29] MEDS ORDERED: Midazolam* 1 MG/ML 5 ML VIAL (5 MG) ONE (18:15)
[2016-10-29] MEDS ORDERED: fentaNYL* 50 MCG/ML 5 ML VIAL (250 MCG VIAL) ONE (18:15)
[2016-10-29] MEDS ORDERED: KETAMINE HCL* 50 MG/ML 10 ML VIAL ONE (18:15)
[2016-10-29] MEDS ORDERED: Lidocaine 1% INJ* 10 MG/ML 30 ML SDV ONE (18:38)
[2016-10-29] MEDS ORDERED: Bupivacaine 0.5% SDV PF* 30 ML VIAL ONE (18:38)
[2016-10-29] MEDS ORDERED: Dexamethasone IV* 4 MG/ML 1 ML (4 MG) ONE (19:00)
[2016-10-29] MEDS ORDERED: Lidocaine 2% PF* 5 ML VIAL ONE (19:00)
[2016-10-29] MEDS ORDERED: Propofol* 10 MG/ML 20 ML BTL IV PUSH ONE (19:00)
[2016-10-29] MEDS ORDERED: Ondansetron INJ* 2 MG/ML VIAL ONE (19:00)
[2016-10-29] MEDS ORDERED: HYDROmorphone* 1 MG/ML 1 ML SYR ONE ×3 (19:16→20:49)
[2016-10-29] MEDS ORDERED: Phenylephrine INJ* 10 MG/ML 1 ML VIAL (10 MG) ONE (19:33)
[2016-10-29] MEDS ORDERED: PROCHLORPERAZINE INJ 5 MG/ML 2 ML VIAL IV PRN (20:14)
[2016-10-29] MEDS: HYDROmorphone* 1 MG/ML 1 ML SYR IV PRN ×4 (20:22→21:00)
[2016-10-29] MEDS: fentaNYL Patch Check Q Shift 1 NOTE SCH (21:39)
[2016-10-30] MEDS: HYDROmorphone* 2 MG/ML 1 ML SYR IV SLOW PU SCH ×8 (00:19→12:01)
[2016-10-30] MEDS: Piperac/Tazob 3.375 gm in NS* 3.375 GM/100 ML BAG IVPB SCH (02:42)
[2016-10-30] MEDS: Methadone TAB* 10 MG PO SCH (05:59)
[2016-10-30] MEDS: fentaNYL Patch Check Q Shift 1 NOTE SCH (07:06)
[2016-10-30] MEDS: NS 0.9% 1000 ML* 1,000 ML IV SCH (08:05)
[2016-10-30 09:13] VITALS: BP 99/63
--- NOTE | 2016-10-30 19:05 | OP ---
CC: Dr. Head OPERATIVE REPORT: DATE OF OPERATION: 10/29/16 DATE OF : 51 SURGEON: Niels Godinez MD ANESTHESIOLOGIST: Dr. Macario Romero ANESTHESIA: General. PRE-OP DIAGNOSES: 1. Left scrotal abscess. 2. Left epididymo-orchitis. 3. Necrosis of a portion of scrotal skin. POST-OP DIAGNOSES: 1. Left scrotal abscess. 2. Left epididymo-orchitis. 3. Necrosis of a portion of scrotal skin. OPERATIVE PROCEDURE: 1. Incision and drainage of left scrotal abscess. 2. Debridement of necrotic scrotal skin. 3. Left orchiectomy. INDICATION FOR PROCEDURE: Mr. Whitehead is a 61-year-old white male, who has end- stage rectal carcinoma, who is presently on hospice care. Five weeks ago, he developed left epididymo-orchitis and has been managed by the Hospice service with oral antibiotics. In the last 2 days, his symptoms became a lot worse and he developed increasing swelling and pain of the left scrotum. A scrotal ultrasound showed a large scrotal abscess. Examination confirmed a large left scrotal abscess and necrosis of a portion of the left scrotal skin. Because of the above history and findings, the patient was taken urgently to the operating room for the above procedure. PATHOLOGY: Exam under anesthesia again showed a large fluctuating mass in the left hemiscrotum. There was necrosis of the mid scrotal skin. After incising the scrotum, a total of more than 100 cc of thick pus was drained. The scrotal skin was thinned out and looked partially nonviable. The anterior surface of the testis was covered with thick muco-purulent material. The spermatic cord was not involved with the process. The right scrotal cavity and the right testis were not involved. DESCRIPTION OF PROCEDURE: After successful general anesthesia, the patient was placed in the supine position and prepped and draped in the usual manner. An elliptical incision was carried over the anterior left hemiscrotum excising the grossly necrotic tissue. Thick pus was evacuated from this scrotal cavity. The above findings were then noted. The testis was then dissected and freed from the surrounding tissue and the spermatic cord was identified. The spermatic cord was then divided between clamps and the stump was double ligated with 2-0 Vicryl suture ligatures and ties. The specimen was then removed. Additional debridement of the scrotal skin was carried removing all the thinned out and partially non-viable skin. Additional debridement was carried inside the scrotal cavity. The bleeders were all controlled with coagulation current. The wound was then thoroughly irrigated with saline. Good hemostasis was achieved. The upper part of the incision was gently approximated, but not closed using spaced loose interrupted sutures of 2-0 Vicryl. The lower part of the incision, where most of the abscess was located, was kept open. Iodoform packing was then placed inside the scrotal cavity. Hydrogen peroxide soaked gauze was applied over the open area. Additional dressing was applied. The patient tolerated the procedure well and left the operating room in good condition. There was minimal blood loss. The specimens were left testis and necrotic left scrotal skin. All the counts were correct. [id number]/[facility] #: [id number] [facility]
--- NOTE | 2016-10-31 01:07 | DS ---
DISCHARGE SUMMARY: DATE OF ADMISSION: 10/29/16 DATE OF DISCHARGE: 10/30/16 REASON FOR ADMISSION: Severe testicular pain with scrotal abscess. HISTORY: Mr. Whitehead is a 61-year-old male with underlying rectal carcinoma who has metastatic diseas e, has refused further chemotherapy and has been on hospice services. About 5 weeks ago he develope d severe difficulty with urination, had several hospitalizations with infection and epididymitis. H e was switched over to oral antibiotics. He did not tolerate his most recent antibiotic of Augmenti n. He came into the emergency room with severe pain and temperature of 100.1 and chills. He was fou nd to have a very large abscess in the scrotum. The situation was discussed with Dr. Godinez of [facility] and decision made to proceed to surgery. HOSPITAL COURSE: The patient while in the hospital was placed on Zosyn and then had an orchiectomy performed. Per Dr. Godinez, this revealed a scrotal abscess with 150 mL of pus drained. The patie nt reports since that surgery that his pain has been markedly improved. He has had no subsequent fe vers. His pain has been under much better control. He is being discharged to home back to hospice. He has been seen by the medical language specialist, Dr. Grace Leal, who agrees to having to resume services. I have discussed the situation today with Dr. Godinez of Surgery who does not fe el that he needs home antibiotics at this point. I have discussed the situation with Dr. Elvis cormier nd other hospice nurses. Dr. Godinez has provided instructions for the hospice nurses for wound ca re. DISCHARGE DIAGNOSES: 1. Scrotal abscess, requiring orchiectomy. 2. Metastatic rectal cancer. 3. Pain issues. DISCHARGE MEDICATIONS: Include: 1. Fentanyl 125 mg daily. 2. Methadone 40 mg t.i.d. 3. Oxycodone 60 mg q.4 hours p.r.n. pain. 4. Senokot b.i.d. 5. as needed. The patient will not be resuming antibiotics at this time per Dr. Godinez. [id number]/[facility] #: [id number]
== END 2016-10-30 12:00 | disposition hospice, home (50) | DRG 483 ==
LOC: ED 06:47 → SSU 10:04
PROVIDERS: ADMIT Internal Medicine Hematology & Oncology; ATTEND Internal Medicine Hematology & Oncology
PROC: 0VB50ZZ Excision of Scrotum, Open Approach (ICD-10-PCS; 2016-10-29)
PROC: 0VTB0ZZ Resection of Left Testis, Open Approach (ICD-10-PCS; principal; 2016-10-29 17:30)
DX: N45.4 Abscess of epididymis or testis (principal); C20 Malignant neoplasm of rectum; C78.7 Secondary malignant neoplasm of liver and intrahepatic bile duct; N45.3 Epididymo-orchitis; F17.219 Nicotine dependence, cigarettes, with unspecified nicotine-induced disorders; Z79.2 Long term (current) use of antibiotics; Z79.891 Long term (current) use of opiate analgesic; Z79.899 Other long term (current) drug therapy; Z85.828 Personal history of other malignant neoplasm of skin; Z80.1 Family history of malignant neoplasm of trachea, bronchus and lung; Z82.49 Family history of ischemic heart disease and other diseases of the circulatory system
CPT/HCPCS: 36415; 76870; 80053; 85025; 85610; 85730; 86140; 87070; 87073; 87077; 87186; 87205; 87640; 87641; 88305; 99223; 99239; A9270-GY; J1100; J1170; J1642; J2001; J2250; J2405; J2543; J2704; J3010